=== PATIENT | male | born 1940 | race Hispanic/Latino ===

== ENCOUNTER 2018-10-20 14:22 | Emergency (ER) | payer BC, MEDICARE ==
[2018-10-20 14:31] VITALS: RESP 16
--- NOTE | 2018-10-20 15:06 | C.PDOC ---
History Of Present Illness 78 year old male presents to the ED for evaluation status-post fall just prior to arrival. Patient states he [place] stairs [place] the [place] office [place], when he tripped and fell, falling forward. He sustained abrasions to the bilateral upper extremities and left side of forehead. Patient is complaining of pain to his head, left elbow, and right thumb. He denies any LOC, chest pain, shortness of breath, dizziness, nausea, vomiting, or visual changes. Also denies history of blood thinner use. Last tetanus was 2 years ago. - HPI Time Seen by Provider: 10/20/18 14:37 Chief Complaint (Nursing): Trauma History Per: Patient History/Exam Limitations: no limitations Onset/Duration Of Symptoms: Mins Injury Occurred (Timing): Just Before Arrival Location Of Injury: Right: Hand, Left: Elbow, Hand, Head Past Medical History Reviewed: Historical Data, Nursing Documentation, Vital Signs Vital Signs: Last Vital Signs Temp 98 F 10/20/18 14:27 Pulse 66 10/20/18 14:27 Resp 16 10/20/18 14:27 BP 155/83 H 10/20/18 14:27 Pulse Ox 97 10/20/18 14:27 - Medical History PMH: HTN Family History: States: No Known Family Hx - Social History Hx Alcohol Use: No Hx Substance Use: No - Immunization History Hx Tetanus Toxoid Vaccination: Yes Review Of Systems Constitutional: Negative for: Fever Eyes: Negative for: Vision Change Cardiovascular: Negative for: Chest Pain, Palpitations Respiratory: Negative for: Shortness of Breath Gastrointestinal: Negative for: Nausea, Vomiting Musculoskeletal: Positive for: Arm Pain (left elbow), Hand Pain (right thumb) Neurological: Positive for: Headache. Negative for: Weakness, Numbness, Change in Speech, Altered Mental Status, Dizziness, Other (LOC) Physical Exam - Physical Exam Appears: Non-toxic, No Acute Distress Skin: Warm, Dry, Other (abrasions to bilateral hands and elbow) Head: Normacephalic, Swelling (hematoma to left side of forehead), Laceration (0.5 cm laceration to left side forehead) Eye(s): bilateral: Normal Inspection, PERRL, EOMI Oral Mucosa: Moist Neck: Normal ROM, No Midline Cervical Tenderness, Supple Chest: Symmetrical Cardiovascular: Rhythm Regular, No Murmur Respiratory: Normal Breath Sounds, No Accessory Muscle Use Gastrointestinal/Abdominal: Soft, No Tenderness, No Distention Extremity: Normal ROM, Tenderness (to the left elbow, with 2x2 cm avulsion noted), Capillary Refill (< 2 seconds), Deformity (Baseline deformity noted to left 2nd digit), Swelling (To right 1st digit) Pulses: Left Radial: Normal, Right Radial: Normal Neurological/Psych: Oriented x3, Normal Speech, Normal Cranial Nerves, Normal Motor, Normal Sensation, Other (No focal deficits) ED Course And Treatment O2 Sat by Pulse Oximetry: 97 (RA) Pulse Ox Interpretation: Normal - Other Rad Left elbow x-ray X-Ray: Read By Radiologist Interpretation: Accession No. : [id number]. Patient Name / ID : SARTHAK GONZALEZ / [id number]. Exam Date : 10/20/2018 15:43:45 ( Approved ). Study Comment : Sex / Age : M / 78Y. Creator : Javon Appiah MD. Dictator : Javon Appiah MD. Um Nurse : Wilton Weaver : Javon Appiah MD. Approver2 : Report Date : 10/20/2018 17:15:14. My Comment : . Date of service: 10/20/2018. PROCEDURE: Radiographs of the left elbow. HISTORY: pain s.p fall r.o fx. COMPARISON: No prior. FINDINGS: BONES: Normal. No fracture. JOINTS: Normal. No osteoarthritis. SOFT TISSUES: Normal. JOINT EFFUSION: None. OTHER FINDINGS: None. IMPRESSION: Unremarkable radiographs of the left elbow. Right thumb x-ray X-Ray: Read By Radiologist Interpretation: Accession No. : [id number]. Patient Name / ID : SARTHAK GONZALEZ / [id number]. Exam Date : 10/20/2018 15:43:33 ( Approved ). Study Comment : Sex / Age : M / 78Y. Creator : Javon Appiah MD. Dictator : Javon Appiah MD. Um Nurse : Wilton Weaver : Javon Appiah MD. Approver2 : Report Date : 10/20/2018 17:16:01. My Comment : . Date of service: 10/20/2018. PROCEDURE: Right Thumb radiographs. HISTORY: pain s.p fall r.o fx. COMPARISON: None. TECHNIQUE: AP radiograph of the right hand, as well as spot oblique and lateral images of thumb were obtained. FINDINGS: RIGHT THUMB: Normal right thumb, without fracture or focal lesion. Remainder of the right hand (as seen on the AP view) grossly unremarkable. JOINTS: Normal. SOFT TISSUES: Normal. OTHER FINDINGS: None. IMPRESSION: Normal right thumb radiographs. - CT Scan/US CT Head Other Rad Studies (CT/US): Read By Radiologist, Radiology Report Reviewed CT/US Interpretation: Accession No. : [id number]. Patient Name / ID : SARTHAK GONZALEZ / [id number]. Exam Date : 10/20/2018 16:10:41 ( Approved ). Study Comment : Sex / Age : M / 78Y. Creator : Davida Quiñones. Dictator : Marj Andrews MD. Um Nurse : Wilton Weaver : Marj Andrews MD. Approver2 : Report Date : 10/20/2018 16:20:04. My Comment : . Date of service: 10/20/2018. PROCEDURE: CT HEAD WITHOUT CONTRAST. HISTORY: pain and hematoma left side s.p fall. COMPARISON: None available. TECHNIQUE: Axial computed tomography images were obtained through the head/brain without intravenous contrast. Radiation dose: Total exam DLP = 981.23 mGy-cm. This CT exam was performed using one or more of the following dose reduction techniques: Automated exposure control, adjustment of the mA and/or kV according to patient size, and/or use of iterative reconstruction technique. FINDINGS: HEMORRHAGE: No intracranial hemorrhage. BRAIN: Diffuse atrophy with prominence of the ventricles and sulci noted. No mass effect or edema. Scattered periventricular and subcortical white matter hypodensities, which are nonspecific, but often seen with chronic microvascular ischemic disease. Please note that MRI with diffusion imaging is more sensitive in the detection of acute ischemic event. VENTRICLES: No hydrocephalus. CALVARIUM: Unremarkable. PARANASAL SINUSES: Unremarkable as visualized. No significant inflammatory changes. MASTOID AIR CELLS: Unremarkable as visualized. No inflammatory changes. OTHER FINDINGS: None. IMPRESSION: No acute intracranial pathology identified. CT Orbits/Facials Other Rad Studies (CT/US): Read By Radiologist, Radiology Report Reviewed CT/US Interpretation: Accession No. : [id number]. Patient Name / ID : SARTHAK GONZALEZ / [id number]. Exam Date : 10/20/2018 16:16:49 ( Approved ). Study Comment : Sex / Age : M / 78Y. Creator : Jr Mack MD. Dictator : Jr Mack MD. Um Nurse : Wilton Weaver : Jr Mack MD. Approver2 : Report Date : 10/20/2018 17:12:01. My Comment : . Date of service: 10/20/2018. PROCEDURE: CT MAXILLOFACIAL BONES WITHOUT CONTRAST. HISTORY: PAIN HEMATOMA LT SIDE. COMPARISON: Comparison made with concurrent CT scan brain 10/20/2018. TECHNIQUE: Contiguous axial CT images of the maxillofacial bones were obtained. Coronal and sagittal reformats were generated. Radiation dose: Total exam DLP = 736.44 mGy-cm. This CT exam was performed using one or more of the following dose reduction techniques: Automated exposure control, adjustment of the mA and/or kV according to patient size, and/or use of iterative reconstruction technique. FINDINGS: NASAL BONES: Nasal bones appear intact without evidence of acute fractures. No overlying soft tissue swelling. ORBITS: The bony orbits intact. There is mild left periorbital and left supraorbital/lateral periorbital soft tissue swelling that extends superiorly into the left frontotemporal scalp.. The globes intact and lenses appropriately located. There are no relative grow bulbar hemorrhages or collections. Optic nerves and extraocular musculature unremarkable. PARANASAL SINUSES/ MASTOIDS: The frontal sinuses are atretic.. The sphenoid sinuses also slightly diminutive. The remaining of visualized paranasal sinuses are relatively well-developed. There are no fluid levels seen to suggest acute hemorrhage or sinusitis. There is mild lobulated mucosal thickening seen in the inferior aspect left maxillary antrum. Minor mucosal thickening inferior aspect right maxillary antrum. Minor mucosal thickening seen within several ethmoid air cells.. Sphenoid sinus is also slightly. MAXILLA: The bony maxilla is intact. Anterior nasal spine also intact.. A nearly all of the maxillary teeth are absent. MANDIBLE/ TEMPOROMANDIBULAR JOINTS: Unremarkable. SKULL BASE: Unremarkable. TEMPORAL BONES: Middle ears and mastoid grossly unremarkable. OTHER FINDINGS: Multilevel degenerative spondylosis of the cervical spine. The there also appears to be some degenerative fusion changes of the C3 and C4 vertebral body segments. Mild reversal of the normal cervical lordosis which could be secondary to patient positioning in the gantry however underlying element of muscle spasm may contribute. IMPRESSION: No acute fractures of. There is mild left periorbital and lateral periorbital/frontotemporal scalp swelling. Minor mucosal thickening seen within aforementioned paranasal sinuses. Laceration - Laceration Repair left forehead Wound Length (In cm): 0.5 Description Of Wound: Linear Wound Cleansed With: Sterile Saline Wound Examination: Irrigated With Saline Wound Closure: Skin Glue Wound Complexity: Simple Medical Decision Making Medical Decision Making: Impression: Head trauma, Fall, injury extremities Plan: --650 mg PO Tylenol --Left elbow x-ray --Right hand x-ray --CT Head --CT Orbits/Facials Progress: Imaging reviewed, no acute findings. Wound care provided, forehead laceration closed using Dermabond. Left elbow avulsion cleaned with normal saline, debrided, and covered with bacitracin and sterile dressing. Tetanus is already up to date. Patient remains AAOx3, resting comfortably, in no acute distress. Vital signs stable. Patient will be discharged home, advised to follow up with PMD for further evaluation. Disposition Counseled Patient/Family Regarding: Studies Performed, Diagnosis, Need For Followup, Rx Given - Disposition Referrals: Replaced By [facility] [Outside] [facility] [Outside] Disposition: HOME/ ROUTINE Disposition Time: 17:40 Condition: STABLE Additional Instructions: Skin glue was used for forehead laceration and will fall off in few days. Do not soak area or apply any ointment or solutions. Leave dry. Clean other wounds with soap and water and can apply antibiotic ointment such as Neosporin or Bacitracin 1-2 times daily. Your xrays and CT were normal showing no fractures or abnormality. Take Tylenol or Ibuprofen for any pain you may have Prescriptions: Acetaminophen [Tylenol Arthritis] 650 mg PO Q8 PRN #12 tablet.er PRN Reason: Pain, Mild (1-3) Instructions: Laceration Repair With Glue (DC), Wound Care (DC) Forms: [employer] (Tuvaluan) - POA Present On Arrival: Falls Or Trauma - Clinical Impression Clinical Impression: Status post fall, Facial contusion, Facial laceration, Contusion of upper extremity, Multiple abrasions - PA / OSD CLERK / Resident Statement MD/DO has reviewed & agrees with the documentation as recorded. - Scribe Statement The provider has reviewed the documentation as recorded by the Scribalondra Durán All medical record entries made by the Jessikaibalondra were at my direction and personally dictated by me. I have reviewed the chart and agree that the record accurately reflects my personal performance of the history, physical exam, medical decision making, and the department course for this patient. I have also personally directed, reviewed, and agree with the discharge instructions and disposition.
--- NOTE | 2018-10-20 16:30 | CT ---
Date of service: 10/20/2018 PROCEDURE: CT HEAD WITHOUT CONTRAST. HISTORY: pain and hematoma left side s.p fall COMPARISON: None available. TECHNIQUE: Axial computed tomography images were obtained through the head/brain without intravenous contrast. Radiation dose: Total exam DLP = 981.23 mGy-cm. This CT exam was performed using one or more of the following dose reduction techniques: Automated exposure control, adjustment of the mA and/or kV according to patient size, and/or use of iterative reconstruction technique. FINDINGS: HEMORRHAGE: No intracranial hemorrhage. BRAIN: Diffuse atrophy with prominence of the ventricles and sulci noted. No mass effect or edema. Scattered periventricular and subcortical white matter hypodensities, which are nonspecific, but often seen with chronic microvascular ischemic disease. Please note that MRI with diffusion imaging is more sensitive in the detection of acute ischemic event. VENTRICLES: No hydrocephalus. CALVARIUM: Unremarkable. PARANASAL SINUSES: Unremarkable as visualized. No significant inflammatory changes. MASTOID AIR CELLS: Unremarkable as visualized. No inflammatory changes. OTHER FINDINGS: None. IMPRESSION: No acute intracranial pathology identified.
--- NOTE | 2018-10-20 17:15 | CT ---
Date of service: 10/20/2018 PROCEDURE: CT MAXILLOFACIAL BONES WITHOUT CONTRAST HISTORY: PAIN HEMATOMA LT SIDE COMPARISON: Comparison made with concurrent CT scan brain 10/20/2018 TECHNIQUE: Contiguous axial CT images of the maxillofacial bones were obtained. Coronal and sagittal reformats were generated. Radiation dose: Total exam DLP = 736.44 mGy-cm. This CT exam was performed using one or more of the following dose reduction techniques: Automated exposure control, adjustment of the mA and/or kV according to patient size, and/or use of iterative reconstruction technique. FINDINGS: NASAL BONES: Nasal bones appear intact without evidence of acute fractures. No overlying soft tissue swelling. ORBITS: The bony orbits intact. There is mild left periorbital and left supraorbital/lateral periorbital soft tissue swelling that extends superiorly into the left frontotemporal scalp.. The globes intact and lenses appropriately located. There are no relative grow bulbar hemorrhages or collections. Optic nerves and extraocular musculature unremarkable. PARANASAL SINUSES/ MASTOIDS: The frontal sinuses are atretic.. The sphenoid sinuses also slightly diminutive. The remaining of visualized paranasal sinuses are relatively well-developed. There are no fluid levels seen to suggest acute hemorrhage or sinusitis. There is mild lobulated mucosal thickening seen in the inferior aspect left maxillary antrum. Minor mucosal thickening inferior aspect right maxillary antrum. Minor mucosal thickening seen within several ethmoid air cells.. Sphenoid sinus is also slightly MAXILLA: The bony maxilla is intact. Anterior nasal spine also intact.. A nearly all of the maxillary teeth are absent. MANDIBLE/ TEMPOROMANDIBULAR JOINTS: Unremarkable. SKULL BASE: Unremarkable. TEMPORAL BONES: Middle ears and mastoid grossly unremarkable. OTHER FINDINGS: Multilevel degenerative spondylosis of the cervical spine. The there also appears to be some degenerative fusion changes of the C3 and C4 vertebral body segments. Mild reversal of the normal cervical lordosis which could be secondary to patient positioning in the gantry however underlying element of muscle spasm may contribute. IMPRESSION: No acute fractures of. There is mild left periorbital and lateral periorbital/frontotemporal scalp swelling. Minor mucosal thickening seen within aforementioned paranasal sinuses.
--- NOTE | 2018-10-20 17:18 | RAD ---
Date of service: 10/20/2018 PROCEDURE: Radiographs of the left elbow. HISTORY: pain s.p fall r.o fx COMPARISON: No prior. FINDINGS: BONES: Normal. No fracture. JOINTS: Normal. No osteoarthritis. SOFT TISSUES: Normal. JOINT EFFUSION: None. OTHER FINDINGS: None IMPRESSION: Unremarkable radiographs of the left elbow.
--- NOTE | 2018-10-20 17:19 | RAD ---
Date of service: 10/20/2018 PROCEDURE: Right Thumb radiographs. HISTORY: pain s.p fall r.o fx COMPARISON: None. TECHNIQUE: AP radiograph of the right hand, as well as spot oblique and lateral images of thumb were obtained. FINDINGS: RIGHT THUMB: Normal right thumb, without fracture or focal lesion. Remainder of the right hand (as seen on the AP view) grossly unremarkable. JOINTS: Normal. SOFT TISSUES: Normal. OTHER FINDINGS: None. IMPRESSION: Normal right thumb radiographs.
[2018-10-20] MEDS ORDERED: Bacitracin 500 Units/gm Oint Foilpak UD ONE (17:27)
[2018-10-20 17:53] VITALS: BP 160/80; PULSE 68; TEMP 99; O2SAT 98
== END 2018-10-20 19:12 | disposition home or self-care (01) ==
LOC: C.ER 14:22
DX: S01.81XA Laceration without foreign body of other part of head, initial encounter (principal); S40.029A Contusion of unspecified upper arm, initial encounter; S60.512A Abrasion of left hand, initial encounter; S60.511A Abrasion of right hand, initial encounter; S50.312A Abrasion of left elbow, initial encounter; S50.311A Abrasion of right elbow, initial encounter; W01.0XXA Fall on same level from slipping, tripping and stumbling without subsequent striking against object, initial encounter